=== PATIENT | male | born 1955 | race African-American/Black ===

== ENCOUNTER 2023-03-11 09:26 | Inpatient (IN) | payer MEDICARE, MEDICAID ==
[~2023-03-11] VITALS: Ht 188 cm; Wt 79.4 kg
[2023-03-11] MEDS ORDERED: SODIUM CHLORIDE 0.9% 1,000 ML IV ONE ×2 (10:00→11:15)
[2023-03-11 10:29] LABS: BASOPHILS % 0.8 % (0.0-2.0); EOSINOPHILS % 2.8 % (0.0-5.0); HEMOGLOBIN. 14.5 g/dL (14.0-18.0); LYMPHOCYTES % 36.2 % (20.0-50.0); MEAN CORPUSCULAR HGB CONC 32.1 g/dL (31.0-37.0); MEAN CORPUSCULAR VOLUME 90.3 fL (80.0-94.0); MONOCYTES % 9.5 % (2.0-8.0); NEUTROPHILS % 50.7 % (40.0-76.0); PLATELET 194 x1000/uL (130-400); RED BLOOD CELL COUNT 4.99 mill/uL (4.7-6.1); RED CELL DISTRIBUTION WIDTH 13.5 % (11.6-14.6); WHITE BLOOD COUNT 3.8 x1000/uL (4.5-11.0)
[2023-03-11 10:36] LABS: CHLORIDE 100 mEq/L (98-107); INDEX HEMOLYSI 1 (1-3); INDEX ICTERIC 1 (1-4); INDEX LIPEMIC 1 (1-3); POTASSIUM 4.2 mEq/L (3.5-5.1); SODIUM 131 mEq/L (136-145)
[2023-03-11 10:48] LABS: ALANINE AMINOTRANSFERASE 30 IU/L (13-61); ALBUMIN 4.1 g/dL (3.4-5.0); ASPARTATE AMINOTRANSFERASE 26 IU/L (15-37); BETA HYDROXYBUTYRATE 0.4 mMol/L (0.0-0.3); BILIRUBIN TOTAL 1.1 mg/dL (0.1-1.0); CALCIUM 8.9 mg/dL (8.5-10.1); CARBON DIOXIDE 27 mEq/L (21-32); CREATININE 1.1 mg/dL (0.6-1.3); PROTEIN TOTAL 8.6 g/dL (6.0-8.3); TROPONIN I HIGH SENSITIVITY 14 ng/L (<78); UREA NITROGEN BLOOD 21 mg/dL (7-21)
[2023-03-11 10:56] LABS: GLUCOSE 543 mg/dL (70-105)
[2023-03-11] MEDS ORDERED: INSULIN REGULAR (HUMULIN R) 300UNITS/3ML VIAL IV ONE (11:15)
[2023-03-11 11:29] LABS: CLARITY URINE CLEAR (CLEAR); COLOR URINE YELLOW (YELLOW); GLUCOSE URINE 3+ (NEGATIVE); KETONES URINE NEGATIVE (NEGATIVE); LEUKOCYTE ESTERASE URINE NEGATIVE (NEGATIVE); NITRITE URINE NEGATIVE (NEGATIVE); OCCULT BLOOD URINE NEGATIVE (NEGATIVE); PH URINE 6.5 (4.5-8.0); PROTEIN URINE NEGATIVE (NEGATIVE); SPECIFIC GRAVITY URINE 1.029 (1.005-1.030); UROBILINOGEN URINE 0.2 E.U./dL (0.2-1.0)
[2023-03-11 11:40] LABS: BACTERIA URINE NONE SEEN; RBC URINE NONE SEEN /hpf (0-2); SQUAMOUS EPITHELIAL CELL URINE NONE SEEN /lpf (RARE/1+); WBC URINE 0-2 /hpf (0-2); YEAST URINE NONE SEEN
[2023-03-11] MEDS ORDERED: NA PHOS,M-B/NA PHOS,DI-BA ENEMA 118ML PR PRN (13:30)
[2023-03-11] MEDS ORDERED: GUAIFENESIN 200MG/10ML SUGAR FREE UDC PO PRN (13:30)
[2023-03-11] MEDS ORDERED: ONDANSETRON HCL 4MG/2ML INJ IV PRN (13:30)
[2023-03-11] MEDS ORDERED: DOCUSATE SODIUM 100MG CAPSULE PO PRN (13:30)
[2023-03-11] MEDS ORDERED: ACETAMINOPHEN 325MG TABLET PO PRN (13:30)
[2023-03-11] MEDS ORDERED: CLONIDINE 0.1MG TABLET PO PRN (13:30)
[2023-03-11] MEDS ORDERED: MAGNESIUM/ALUMINUM HYDROXIDE/SIMETHICONE 30ML UDC PO PRN (13:30)
[2023-03-11] MEDS ORDERED: IPRATROPIUM/ALBUTEROL 0.5-3(2.5)MG/3ML NEB HHN PRN (13:30)
[2023-03-11] MEDS ORDERED: DIPHENHYDRAMINE 50MG/ML VIAL IV PRN (13:30)
[2023-03-11] MEDS ORDERED: DEXTROSE 50% WATER 50ML SYRINGE IV PRN (14:15)
[2023-03-11] MEDS: ENOXAPARIN 40MG/0.4ML SYR SUBCUT SCH (15:16)
[2023-03-11] MEDS: BLOOD SUGAR DIAGNOSTIC STRIP TEST SCH ×3 (17:00→20:15)
[2023-03-11] MEDS: INSULIN LISPRO 100 UNITS/ML SUBCUT SCH ×2 (18:56→21:19)
[2023-03-11 20:00] VITALS: BP 129/68; PULSE 78; RESP 18; TEMP 99.5; TEMP 99.9
[2023-03-11] MEDS: ACETAMINOPHEN 325MG TABLET PO PRN (20:16)
[2023-03-11 20:20] LABS: CLARITY URINE CLEAR (CLEAR); COLOR URINE YELLOW (YELLOW); GLUCOSE URINE 3+ (NEGATIVE); KETONES URINE TRACE (NEGATIVE); LEUKOCYTE ESTERASE URINE NEGATIVE (NEGATIVE); NITRITE URINE NEGATIVE (NEGATIVE); OCCULT BLOOD URINE NEGATIVE (NEGATIVE); PH URINE 7.5 (4.5-8.0); PROTEIN URINE NEGATIVE (NEGATIVE); SPECIFIC GRAVITY URINE 1.029 (1.005-1.030)
[2023-03-11 20:23] LABS: RBC URINE NONE SEEN /hpf (0-2); YEAST URINE NONE SEEN
[2023-03-11 20:32] LABS: *BARBITURATES SCREEN URINE NEGATIVE (NEGATIVE); *BENZODIAZEPINES SCREEN URINE NEGATIVE (NEGATIVE); *COCAINE SCREEN URINE NEGATIVE (NEGATIVE); CANNABINOID URINE SCREEN NEGATIVE (NEGATIVE); ECSTASY MDMA SCREEN URINE NEGATIVE (NEGATIVE); OPIATES URINE SCREEN NEGATIVE (NEGATIVE); PHENCYCLIDINE URINE SCREEN NEGATIVE (NEGATIVE)
[2023-03-11 20:37] LABS: BACTERIA URINE TRACE; SQUAMOUS EPITHELIAL CELL URINE RARE /lpf (RARE/1+); WBC URINE 0-2 /hpf (0-2)
[2023-03-11 23:05] LABS: *AMPHETAMINES SCREEN URINE NEGATIVE (NEGATIVE)
[2023-03-12] VITALS: BP 107/69; PULSE 84; RESP 19; TEMP 97.7
[2023-03-12 04:00] VITALS: BP 108/67; PULSE 85; RESP 19; TEMP 98.1
[2023-03-12 07:07] LABS: BASOPHILS % 0.8 % (0.0-2.0); DIFFERENTIAL COMMENT 0; EOSINOPHILS % 5.9 % (0.0-5.0); HEMATOCRIT. 39.9 % (42.0-52.0); HEMOGLOBIN. 13.5 g/dL (14.0-18.0); LYMPHOCYTES % 44.4 % (20.0-50.0); MEAN CORPUSCULAR HEMOGLOBIN 30.2 pg (28.0-32.0); MEAN CORPUSCULAR HGB CONC 33.8 g/dL (31.0-37.0); MEAN CORPUSCULAR VOLUME 89.4 fL (80.0-94.0); MEAN PLATELET VOLUME 9.2 fl (7.4-10.4); MONOCYTES % 10.4 % (2.0-8.0); NEUTROPHILS % 38.5 % (40.0-76.0); PLATELET 184 x1000/uL (130-400); RED BLOOD CELL COUNT 4.46 mill/uL (4.7-6.1); RED CELL DISTRIBUTION WIDTH 13.6 % (11.6-14.6); WHITE BLOOD COUNT 4.6 x1000/uL (4.5-11.0)
[2023-03-12] MEDS: BLOOD SUGAR DIAGNOSTIC STRIP TEST SCH ×4 (07:40→21:00)
[2023-03-12 07:52] LABS: CHLORIDE 105 mEq/L (98-107); INDEX HEMOLYSI 1 (1-3); INDEX ICTERIC 1 (1-4); INDEX LIPEMIC 1 (1-3); POTASSIUM 4.3 mEq/L (3.5-5.1); SODIUM 134 mEq/L (136-145)
[2023-03-12 08:00] VITALS: BP 93/63; PULSE 74; RESP 18; TEMP 98.1
[2023-03-12 08:10] LABS: ALANINE AMINOTRANSFERASE 25 IU/L (13-61); ALBUMIN 3.3 g/dL (3.4-5.0); ASPARTATE AMINOTRANSFERASE 27 IU/L (15-37); BILIRUBIN TOTAL 0.9 mg/dL (0.1-1.0); CALCIUM 8.7 mg/dL (8.5-10.1); CARBON DIOXIDE 21 mEq/L (21-32); CHOLESTEROL 116 mg/dL (<200); CREATININE 1.1 mg/dL (0.6-1.3); GLUCOSE 125 mg/dL (70-105); HDL CHOLESTEROL 37 mg/dL (40-59); LDL CHOLESTEROL 72 mg/dL (5-100); PROTEIN TOTAL 6.9 g/dL (6.0-8.3); T4 FREE 1.18 ng/dL (0.76-1.46); THYROID STIMULATING HORMONE 0.33 uIU/mL (0.36-3.74); TRIGLYCERIDE 63 mg/dL (0-150); UREA NITROGEN BLOOD 24 mg/dL (7-21)
[2023-03-12] MEDS: INSULIN LISPRO 100 UNITS/ML SUBCUT SCH ×4 (08:10→21:00)
[2023-03-12] MEDS ORDERED: INFLUENZA VACCINE 05/PF 0.5 ML SYRINGE IM ONE (09:00)
[2023-03-12] MEDS ORDERED: PNEUMOCOCCAL 23-VAL P-SAC VAC 0.5 ML IM ONE (09:00)
[2023-03-12] MEDS: FAMOTIDINE 20MG/2ML VIAL IV SCH (09:17)
[2023-03-12 12:00] VITALS: BP 119/62; PULSE 70; RESP 18; TEMP 98.2
[2023-03-12] MEDS ORDERED: INSULIN GLARGINE 100 UNITS/ML SUBCUT NR (12:00)
[2023-03-12] MEDS: ACETAMINOPHEN 325MG TABLET PO PRN (12:52)
[2023-03-12] MEDS: ENOXAPARIN 40MG/0.4ML SYR SUBCUT SCH (15:00)
[2023-03-12 16:00] VITALS: BP 99/60; PULSE 78; RESP 18; TEMP 97.6
[2023-03-12 19:59] VITALS: BP_SYST 109; BP_SYST 113; BP_SYST 130; BP_DIAS 57; BP_DIAS 59; BP_DIAS 65; PULSE 71; RESP 18; TEMP 98.2
[2023-03-13] VITALS: BP 100/58; PULSE 79; RESP 18; TEMP 98.3
[2023-03-13 03:48] VITALS: BP 113/58; PULSE 65; RESP 18; TEMP 98.2
[2023-03-13] MEDS: BLOOD SUGAR DIAGNOSTIC STRIP TEST SCH ×2 (07:00→12:40)
[2023-03-13 07:01] LABS: HEMATOCRIT 38.9 % (42.0-52.0); MEAN CORPUSCULAR HEMOGLOBIN 29.7 pg (28.0-32.0); MEAN CORPUSCULAR HGB CONC 33.3 g/dL (31.0-37.0); PLATELET 182 x1000/uL (130-400); RED BLOOD CELL COUNT 4.37 mill/uL (4.7-6.1); RED CELL DISTRIBUTION WIDTH 13.9 % (11.6-14.6); WHITE BLOOD COUNT 3.9 x1000/uL (4.5-11.0)
[2023-03-13 07:13] LABS: CHLORIDE 108 mEq/L (98-107); INDEX HEMOLYSI 1 (1-3); INDEX ICTERIC 1 (1-4); INDEX LIPEMIC 1 (1-3); SODIUM 134 mEq/L (136-145)
[2023-03-13 07:19] LABS: CALCIUM 7.3 mg/dL (8.5-10.1); CARBON DIOXIDE 25 mEq/L (21-32); GLUCOSE 191 mg/dL (70-105); UREA NITROGEN BLOOD 22 mg/dL (7-21)
[2023-03-13] MEDS: INSULIN LISPRO 100 UNITS/ML SUBCUT SCH ×2 (07:34→12:45)
[2023-03-13 08:00] VITALS: BP 118/70; PULSE 69; RESP 18; TEMP 97.1
[2023-03-13] MEDS: FAMOTIDINE 20MG/2ML VIAL IV SCH (09:28)
[2023-03-13] MEDS ORDERED: METF-416 MT (09:37)
[2023-03-13] MEDS ORDERED: INSU100V51 PO (09:37)
[2023-03-13] MEDS ORDERED: INSU100V43 SQ (09:37)
[2023-03-13] MEDS ORDERED: INSULIN GLARGINE 100 UNITS/ML SUBCUT NR (09:55)
[2023-03-13 11:06] VITALS: BP 118/70; PULSE 69; TEMP 97.1; O2SAT 100
[2023-03-13 12:00] VITALS: BP 155/77; PULSE 77; RESP 20; TEMP 97
[2023-03-13] MEDS: ENOXAPARIN 40MG/0.4ML SYR SUBCUT SCH (14:52)
== END 2023-03-13 16:25 | disposition home health service (06) | DRG 48 ==
LOC: ER 09:26 → 7WST 12:13 → EDBEDREQ 12:14 → EDBEDREQTM 12:14 → ER 16:07
PROVIDERS: ADMIT Internal Medicine; ATTEND Internal Medicine
DX: G90.8 Other disorders of autonomic nervous system (principal); E11.00 Type 2 diabetes mellitus with hyperosmolarity without nonketotic hyperglycemic-hyperosmolar coma (NKHHC); E87.1 Hypo-osmolality and hyponatremia; I10 Essential (primary) hypertension; M19.90 Unspecified osteoarthritis, unspecified site; J45.909 Unspecified asthma, uncomplicated; F17.210 Nicotine dependence, cigarettes, uncomplicated; Z79.4 Long term (current) use of insulin; Z79.84 Long term (current) use of oral hypoglycemic drugs; Z79.899 Other long term (current) drug therapy; Z91.128 Patient's intentional underdosing of medication regimen for other reason
CPT/HCPCS: 36415; 71045; 80048; 80053; 80061; 80305; 81003; 82010; 82570; 82962; 83036; 83930; 83935; 84300; 84439; 84443; 84484; 85025; 85027; 93005; 97161; 97166; 99285; J1650; J1815; J3490; J7030

== ENCOUNTER 2023-08-21 11:25 | Emergency (ER) | payer MEDICARE, MEDICAID ==
[~2023-08-21] VITALS: Ht 188 cm; Wt 82.0 kg
[~2023-08-21 11:25] MED LIST: INSU100V43 SQ; INSU100V51 PO; METF-416 MT
[2023-08-21 11:35] VITALS: O2SAT 100
[2023-08-21] MEDS ORDERED: INSU100I24 SQ (12:19)
[2023-08-21 12:56] VITALS: BP 151/57; PULSE 63; RESP 14; TEMP 98.2
== END 2023-08-21 13:00 | disposition home or self-care (01) ==
LOC: ER 11:25
DX: E11.9 Type 2 diabetes mellitus without complications (principal); I10 Essential (primary) hypertension; Z79.899 Other long term (current) drug therapy
CPT/HCPCS: 82962; 99283

== ENCOUNTER 2023-08-29 09:53 | Emergency (ER) | payer MEDICARE, MEDICAID ==
[~2023-08-29] VITALS: Ht 182.9 cm; Wt 82.0 kg
[~2023-08-29 09:53] MED LIST changes: +INSU100I24 SQ
[2023-08-29 09:57] VITALS: O2SAT 99
[2023-08-29 10:40] VITALS: BP 152/64; PULSE 85; RESP 20; TEMP 98.4
== END 2023-08-29 10:49 | disposition home or self-care (01) ==
LOC: ER 09:53
DX: E11.649 Type 2 diabetes mellitus with hypoglycemia without coma (principal); I10 Essential (primary) hypertension; Z79.4 Long term (current) use of insulin
CPT/HCPCS: 82962; 99283; Z7610 ×2